=== PATIENT | female | born 1995 ===

== ENCOUNTER 2019-03-25 16:32 | Emergency (ER) | payer OTHER ==
[2019-03-25 16:47] VITALS: BP 91/67
--- NOTE | 2019-03-25 17:09 | UC ---
Abdominal Pain Female HPI - HPI Summary HPI Summary: 23 yo female presents with loose stools. She tells me that on 02/27/19 she was in [place] and developed diarrhea and abdominal cramping. She was treated with cipro and flagyl and her symptoms resolved for a few days. She then traveled to [facility] and diarrhea developed again - was again treated with cipro and flagyl and her symptoms resolved. She returned to [place] on 03/15 and since being here has noticed that she is having loose stools 2-3 times a day that is after eating. States that food seems to "run right through" her - she has a decreased appetite due to this. Denies fever, chills, SOB, chest pain, abdominal pain, nausea, vomiting, dysuria, flank pain. No blood in stool. - History of Current Complaint Chief Complaint: UCGI Stated Complaint: DIARRHEA Time Seen by Provider: 03/25/19 17:09 Hx Obtained From: Patient Hx Last Menstrual Period: February 24, 2019 Onset/Duration: Gradual Onset Severity Currently: None Pain Intensity: 0 Allergies/Adverse Reactions: Allergies Allergy/AdvReac Type Severity Reaction Status Date / Time No Known Allergies Allergy Verified 03/25/19 16:48 Home Medications: Home Medications NK [No Home Medications Reported] 03/25/19 [History Confirmed 03/25/19] PMH/Surg Hx/FS Hx/Imm Hx - Additional Past Medical History Additional PMH: None - Surgical History Surgical History: None - Family History Known Family History: Positive: Non-Contributory - Social History Occupation: Student Lives: Dormitory/Roommates Alcohol Use: None Substance Use Type: None Smoking Status (MU): Never Smoked Tobacco Review of Systems All Other Systems Reviewed And Are Negative: No Constitutional: Positive: Negative Skin: Positive: Negative Respiratory: Positive: Negative Cardiovascular: Positive: Negative Gastrointestinal: Positive: Diarrhea Genitourinary: Positive: Negative Neurological: Positive: Negative Psychological: Positive: Negative Physical Exam - Summary Physical Exam Summary: GENERAL: NAD. WDWN. No pain distress. SKIN: No rashes, sores, lesions, or open wounds. NECK: Supple. Nontender. No lymphadenopathy. CHEST: CTAB. No r/r/w. No accessory muscle use. Breathing comfortably and in no distress. CV: RRR. Without m/r/g. Pulses intact. Cap refill <2seconds ABDOMEN: Soft. NTTP. No distention or guarding. No organomegaly. No CVA tenderness. Bowel sounds present NEURO: Alert. PSYCH: Age appropriate behavior. Triage Information Reviewed: Yes Vital Signs: Initial Vital Signs Temp 97.8 F 03/25/19 16:40 Pulse 64 03/25/19 16:40 Resp 16 03/25/19 16:40 BP 91/67 03/25/19 16:40 Pulse Ox 100 03/25/19 16:40 Vital Signs Reviewed: Yes Abd Pain Female Course/Dx - Course Course Of Treatment: Will draw for CBC and CMP and have pt complete stool cultures to further evaluate her symptoms. Hold off on treatment at this time as she has already had two rounds of cipro and flagyl. Advised to f/u with [facility] next week - Differential Dx/Diagnosis Provider Diagnosis: Diarrhea Discharge ED - Sign-Out/Discharge Documenting (check all that apply): Patient Departure All imaging exams completed and their final reports reviewed: No Studies - Discharge Plan Condition: Stable Disposition: HOME Patient Education Materials: Acute Diarrhea (ED) Referrals: No Primary Care Phys,NOPCP [Primary Care Provider] - Additional Instructions: If you develop a fever, shortness of breath, chest pain, new or worsening symptoms - please call your PCP or go to the ED immediately. Complete the stool sample as soon as possible Please follow up with [facility] next week for further evaluation and treatment - Billing Disposition and Condition Condition: STABLE Disposition: Home
[2019-03-26 14:04] LABS: ABS Eosinophils 0.1 10^3/ul (0-0.6); ABS Lymphocytes 1.7 10^3/ul (1.0-4.8); ABS Monocytes 0.7 10^3/ul (0-0.8); ABS Neutrophils 7.9 10^3/ul (1.5-7.7); Hematocrit 39 % (35-47); Hemoglobin 13.3 g/dL (12.0-16.0); Lymphocyte % 16.6 %; Mean Corpuscular HGB Conc 34 g/dL (31-36); Mean Corpuscular Hemoglobin 29 pg (27-31); Mean Corpuscular Volume 86 fL (80-97); Mean Platelet Volume 9.4 fL (7.4-10.4); Platelet Count 311 10^3/uL (150-450); Red Blood Count 4.54 10^6 /uL (3.70-4.87); Red Cell Distribution Width 14 % (10-15); White Blood Count 10.5 10^3/uL (3.5-10.8)
[2019-03-26 14:16] LABS: Albumin 4.5 g/dL (3.2-5.2); Albumin/Globulin Ratio 1.8 (1-3); BUN/Creatinine Ratio 11.3 (8-20); Calcium 9.3 mg/dL (8.6-10.3); EGFR Non-African American 121.5 (>60); Globulin 2.5 g/dL (2-4); Potassium 3.8 mmol/L (3.5-5.0); Total Bilirubin 0.5 mg/dL (0.2-1.0)
--- NOTE | 2019-03-26 17:33 | UC ---
- Progress Note Progress Note: Lab work returned as normal, patient to follow up with James/ [facility]. NO change to treatment plan. -Arianna Villalobos PAc Course/Dx - Diagnoses Provider Diagnoses: Diarrhea Discharge ED - Sign-Out/Discharge Documenting (check all that apply): Patient Departure All imaging exams completed and their final reports reviewed: No Studies - Discharge Plan Condition: Stable Disposition: HOME Patient Education Materials: Acute Diarrhea (ED) Referrals: No Primary Care Phys,NOPCP [Primary Care Provider] - Additional Instructions: If you develop a fever, shortness of breath, chest pain, new or worsening symptoms - please call your PCP or go to the ED immediately. Complete the stool sample as soon as possible Please follow up with [facility] next week for further evaluation and treatment - Billing Disposition and Condition Condition: STABLE Disposition: Home
== END 2019-03-25 18:21 | disposition home or self-care (01) ==
LOC: UCEAST 16:32
DX: R19.7 Diarrhea, unspecified (principal)
CPT/HCPCS: 36415; 80053; 84702; 85025; 99201; G0463